=== PATIENT | male | born 1965 | race Caucasian/White ===

== ENCOUNTER 2020-03-26 13:53 | Emergency (ER) | payer BC, SELFPAY ==
[2020-03-26 14:02] VITALS: BP 135/67; PULSE 119; RESP 14; TEMP 37.2; O2SAT 97; BMI 27.1
--- NOTE | 2020-03-26 14:12 | CTR_ITS ---
PROCEDURE INFORMATION: Exam: CT Abdomen And Pelvis With Contrast Exam date and time: 03/26/2020 3:57 PM Age: 54 years old Clinical indication: Abdominal pain; Localized; Right; Prior surgery; Surgery type: Gb, lymphnodes; Additional info: Abd pain TECHNIQUE: Imaging protocol: Computed tomography of the abdomen and pelvis with intravenous contrast. Radiation optimization: All CT scans at this facility use at least one of these dose optimization techniques: automated exposure control; mA and/or kV adjustment per patient size (includes targeted exams where dose is matched to clinical indication); or iterative reconstruction. Contrast material: OMNI 300; Contrast volume: 95 ml; Contrast route: IV; COMPARISON: No relevant prior studies available. RADIATION DOSE METRICS: Total DLP: 1093.4 mGy-cm FINDINGS: Lungs: Left discoid atelectasis and/or scarring. Liver: Normal. No mass. Gallbladder and bile ducts: Surgical clips in the gallbladder fossa consistent with cholecystectomy. Pancreas: Normal. No ductal dilation. Spleen: Calcified splenic granulomas. 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 3.0 x 2.1 x 2.5 cm left adrenal mass consistent with adrenal metastasis versus primary neoplasm. Kidneys and ureters: Normal. No hydronephrosis. Stomach and bowel: Unremarkable. No obstruction. No mucosal thickening. Appendix: No evidence of appendicitis. Intraperitoneal space: Free fluid in the dependent portion of the pelvis which is abnormal for a male. Vasculature: One or more calcified pelvic phleboliths. Lymph nodes: Multiple lobulated accessory tumors surrounding the primary mass most consistent with metastatic lymphadenopathy with the largest measuring 5.5 cm between the aorta and IVC. The IVC is elevated anteriorly from 5.4 cm retrocaval lymph node. Bladder: Unremarkable as visualized. Reproductive: Nonspecific prostate calcifications. Bones/joints: Unremarkable. No acute fracture. Soft tissues: Unremarkable. CT/CT abdomen pelvis w con* [id number] IMPRESSION: 1. 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 2. Multiple lobulated accessory tumors surrounding the primary mass most consistent with metastatic lymphadenopathy with the largest measuring 5.5 cm between the aorta and IVC. The IVC is elevated anteriorly from 5.4 cm retrocaval lymph node. 3. 3.0 x 2.1 x 2.5 cm left adrenal mass consistent with adrenal metastasis versus primary neoplasm. Radiation Dose CTDIVOL = (mGy): DLP = 1093.4 (mGy-cm)
--- NOTE | 2020-03-26 14:15 | W.ED.ABDPA2 ---
HPI - Abdominal Pain General: Chief Complaint: Abdominal Pain Stated Complaint: abd pain Time Seen by Provider: 03/26/20 14:07 Source: patient Mode of arrival: ambulatory Limitations: no limitations History of Present Illness: HPI narrative: 54-year-old male states he has had right-sided abdominal pain over the last 5 to 6 days. He states it is worsened and is in his right lower quadrant and right flank. He denies any worsening improving factors. He denies any fevers or vomiting. MD elicited complaint: abdominal pain Pertinent past history: none Onset (ago): day(s) Pain Consistency: constant Location: RLQ and R flank Severity: moderate Quality: sharp Radiation: none Exacerbating factors: nothing Relieving factors: nothing Associated Symptoms: Denies chills, dysuria and fever(s) Review of Systems Const: Denies: fever(s), chills, body aches or change in appetite Eyes: Denies: blurry vision or eye discomfort ENMT: Denies: throat pain or dental pain Card: Denies: chest pain Resp: Denies: dyspnea GI: Reports: abdominal pain : Denies: dysuria Musc: Denies: neck pain or back pain Skin/Breast: Denies: rash Neuro: Denies: headache(s) Psych: Denies: depression Fabian/Lymph: Denies: easy bruising All/Imm: Denies: urticaria PFSH ED PFSH: Social History Smoking and tobacco status: never smoked Physical Exam Const: COMMON NORMALS: no acute distress, patient oriented x3 and healthy appearing HENMT: COMMON NORMALS: normocephalic and atraumatic HEAD & SCALP: normocephalic and atraumatic Eye: COMMON NORMALS: Equal, round and reactive pupils present and EOMs intact bilaterally PUPIL: Yes Equal, round and reactive pupils present Neck/C-Spine: COMMON NORMALS: full ROM and supple Chest: COMMONS NORMALS: normal inspection of the chest and normal palpation of entire chest wall Resp: COMMON NORMALS: normal respiratory effort, No retractions, No use of accessory muscles and clear to auscultation bilaterally AUSCULTATION: clear to auscultation bilaterally Cardio: COMMON NORMALS: regular rate, regular rhythm and No murmurs present (Cardio) RATE: regular rate RHYTHM: regular rhythm GI: COMMON NORMALS: Normal to inspection, nondistended, normoactive bowel sounds present, Soft to palpation and no masses PALPATION: Yes Soft to palpation and Yes Tenderness to palpation present (GI) Details: RLQ Extremity: COMMON NORMALS: normal to inspection and full ROM Neuro: COMMON NORMALS: patient oriented x3, moves all extremities and no focal motor deficits Psych: COMMON NORMALS: mental status grossly normal, Normal thought process present and cooperative THOUGHT PROCESS: Normal thought process present Skin: COMMON NORMALS: no rashes or lesions noted and no wounds GENERAL SKIN EXAM: no rashes or lesions noted Course Vital Signs: Vital signs: Vital Signs Temperature 98.9 F 03/26/20 14:02 Pulse Rate 97 03/26/20 16:17 Respiratory Rate 16 03/26/20 16:17 Blood Pressure 132/85 03/26/20 14:20 Pulse Oximetry 95 03/26/20 16:17 MDM - Abdominal Pain MDM Narrative: Medical decision making narrative: Patient presents here with abdominal pain. Patient CT showed an adrenal mass. Patient has a history of melanoma and has an oncologist from that. Patient is to follow-up with an oncologist in the 2 to 4 days. He was hyperglycemic and his blood glucose is improved. Patient sodium low but likely due to pseudohyponatremia from his glucose. Patient is stable for discharge and is to follow-up with oncologist in 2 to 4 days return to ER if worsening. Lab Data: Labs: Lab Results 03/26/20 03/26/20 03/26/20 Range/Units 14:16 14:20 14:20 WBC 13.0 H (4.0-10.0) 10^3/ uL RBC 4.51 (4.1-5.3) 10^6/u L Hgb 10.9 L (11.7-16.6) g/dL Hct 34.9 L (42.0-52.0) % MCV 77.4 L (80-94) fL MCH 24.2 L (28.0-34.0) pg MCHC 31.2 (30.0-36.0) g/dL RDW 15.2 H (12.1-15.1) % Plt Count 474 H (130-400) 10^3/c mm MPV 8.5 (7.4-10.4) fL Neut % (Auto) 82.9 % Lymph % (Auto) 8.8 % [facility] % (Auto) 7.5 % Eos % (Auto) 0.1 % Baso % (Auto) 0.3 % Neut # (Auto) 10.8 H (1.8-7.7) 10^3/u L Lymph # (Auto) 1.1 (0.8-4.8) 10^3/u L [facility] # (Auto) 1.0 H (0.2-0.9) 10^3/u L Eos # (Auto) 0.0 (0.0-0.8) 10^3/u L Baso # (Auto) 0.0 (0.0-0.1) 10^3/u L Nucleated RBC % (a uto) 0 % Nucleated RBCs # 0.0 /100WBC Sodium 125 L (136-145) mmol/L Potassium 4.2 (3.5-5.1) mmol/L Chloride 85 L (98-107) mmol/L Carbon Dioxide 25 (22-29) mmol/L Anion Gap 19.2 H (5-19) BUN 11 (6-20) mg/dL Creatinine 0.8 (0.7-1.2) mg/dL GFR Calculation 101.5 (90-130) mL/min Glucose 436 H (65-115) mg/dL POC Glucose (70-110) mg/dL Calculated Osmolal ity 275 L (285-295) mOsm/k g Calcium 9.2 (8.5-10.5) mg/dL Total Bilirubin 1.2 (0.15-1.2) mg/dL AST 28 (0-40) U/L ALT 13 (0-41) U/L Alkaline Phosphata se 91 (40-130) IU/L Total Protein 7.8 (6.6-8.7) g/dL Albumin 3.6 (3.5-5.2) g/dL Globulin 4.2 (1.3-4.6) g/dL Lipase 66 H (13-60) U/L Urine Color Yellow (Yellow) Urine Appearance Clear (CLEAR) Urine pH 5 (5-7) Ur Specific Gravit y 1.010 (1.005-1.030) Urine Protein Neg (Negative) Urine Glucose (UA) 4+ H (Normal) Urine Ketones 1+ H (Negative) Urine Blood Neg (Negative) Urine Nitrate Negative (Negative) Urine Bilirubin Neg (NEGATIVE) Urine Urobilinogen Norm (Negative) mg/dL Ur Leukocyte Deisi ase Negative (Negative) 03/26/20 Range/Units 16:26 WBC (4.0-10.0) 10^3/ uL RBC (4.1-5.3) 10^6/u L Hgb (11.7-16.6) g/dL Hct (42.0-52.0) % MCV (80-94) fL MCH (28.0-34.0) pg MCHC (30.0-36.0) g/dL RDW (12.1-15.1) % Plt Count (130-400) 10^3/c mm MPV (7.4-10.4) fL Neut % (Auto) % Lymph % (Auto) % [facility] % (Auto) % Eos % (Auto) % Baso % (Auto) % Neut # (Auto) (1.8-7.7) 10^3/u L Lymph # (Auto) (0.8-4.8) 10^3/u L [facility] # (Auto) (0.2-0.9) 10^3/u L Eos # (Auto) (0.0-0.8) 10^3/u L Baso # (Auto) (0.0-0.1) 10^3/u L Nucleated RBC % (a uto) % Nucleated RBCs # /100WBC Sodium (136-145) mmol/L Potassium (3.5-5.1) mmol/L Chloride (98-107) mmol/L Carbon Dioxide (22-29) mmol/L Anion Gap (5-19) BUN (6-20) mg/dL Creatinine (0.7-1.2) mg/dL GFR Calculation (90-130) mL/min Glucose (65-115) mg/dL POC Glucose 386 (70-110) mg/dL Calculated Osmolal ity (285-295) mOsm/k g Calcium (8.5-10.5) mg/dL Total Bilirubin (0.15-1.2) mg/dL AST (0-40) U/L ALT (0-41) U/L Alkaline Phosphata se (40-130) IU/L Total Protein (6.6-8.7) g/dL Albumin (3.5-5.2) g/dL Globulin (1.3-4.6) g/dL Lipase (13-60) U/L Urine Color (Yellow) Urine Appearance (CLEAR) Urine pH (5-7) Ur Specific Gravit y (1.005-1.030) Urine Protein (Negative) Urine Glucose (UA) (Normal) Urine Ketones (Negative) Urine Blood (Negative) Urine Nitrate (Negative) Urine Bilirubin (NEGATIVE) Urine Urobilinogen (Negative) mg/dL Ur Leukocyte Deisi ase (Negative) Imaging Data ^: CT Abd/Pel: Radiologist's impression: [address] [address] [address] Scan Report Signed Patient: Andres Cisneros Unit #: [id number] : 1965 Age/Sex: 54 / M ADM Date: 03/26/20 Loc: ER Room/Bed: Attending Dr: Ordering Provider/Ordering MD: Jh Paredes MD Date of Service: 03/26/20 Procedure(s): CT abdomen pelvis w con* [id number] Accession Number(s): [id number] Report Number: [id number] PROCEDURE INFORMATION: Exam: CT Abdomen And Pelvis With Contrast Exam date and time: 03/26/2020 3:57 PM Age: 54 years old Clinical indication: Abdominal pain; Localized; Right; Prior surgery; Surgery type: Gb, lymphnodes; Additional info: Abd pain TECHNIQUE: Imaging protocol: Computed tomography of the abdomen and pelvis with intravenous contrast. Radiation optimization: All CT scans at this facility use at least one of these dose optimization techniques: automated exposure control; mA and/or kV adjustment per patient size (includes targeted exams where dose is matched to clinical indication); or iterative reconstruction. Contrast material: OMNI 300; Contrast volume: 95 ml; Contrast route: IV; COMPARISON: No relevant prior studies available. RADIATION DOSE METRICS: Total DLP: 1093.4 mGy-cm FINDINGS: Lungs: Left discoid atelectasis and/or scarring. Liver: Normal. No mass. Gallbladder and bile ducts: Surgical clips in the gallbladder fossa consistent with cholecystectomy. Pancreas: Normal. No ductal dilation. Spleen: Calcified splenic granulomas. 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 3.0 x 2.1 x 2.5 cm left adrenal mass consistent with adrenal metastasis versus primary neoplasm. Kidneys and ureters: Normal. No hydronephrosis. Stomach and bowel: Unremarkable. No obstruction. No mucosal thickening. Appendix: No evidence of appendicitis. Intraperitoneal space: Free fluid in the dependent portion of the pelvis which is abnormal for a male. Vasculature: One or more calcified pelvic phleboliths. Lymph nodes: Multiple lobulated accessory tumors surrounding the primary mass most consistent with metastatic lymphadenopathy with the largest measuring 5.5 cm between the aorta and IVC. The IVC is elevated anteriorly from 5.4 cm retrocaval lymph node. Bladder: Unremarkable as visualized. Reproductive: Nonspecific prostate calcifications. Bones/joints: Unremarkable. No acute fracture. Soft tissues: Unremarkable. CT/CT abdomen pelvis w con* [id number] IMPRESSION: 1. 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 2. Multiple lobulated accessory tumors surrounding the primary mass most consistent with metastatic lymphadenopathy with the largest measuring 5.5 cm between the aorta and IVC. The IVC is elevated anteriorly from 5.4 cm retrocaval lymph node. 3. 3.0 x 2.1 x 2.5 cm left adrenal mass consistent with adrenal metastasis versus primary neoplasm. Discharge Plan Discharge Patient Disposition: Home, Self-Care Clinical Impression: Adrenal mass, Hyperglycemia Abdominal pain Qualifiers: Abdominal location: generalized Qualified Code(s): R10.84 - Generalized abdominal pain Condition: Stable Prescriptions: [place] 5-325 mg tablet 1 tab PO Q6H PRN (Reason: pain) Qty: 14 RF: 0 Zofran 4 mg tablet 4 mg PO QID PRN (Reason: nausea and vomiting) Qty: 14 RF: 0 No Action metformin 1,000 mg tablet 1,000 mg PO BID RF: 0 lisinopril 5 mg tablet 5 mg PO DAILY RF: 0 Centrum Silver Men 300-600-300 mcg Tablet 1 tab PO DAILY RF: 0 Discharge Orders: Discharge Order (Routine); Ordered 03/26/20 Ordered By: Jh Paredes Referrals: Cory Rollins FNP [Primary Care Provider] - Discharge Diet: Advance as tolerated Discharge Activity: Resume usual activity Patient Instructions: Abdominal Pain (ED) Coding Level of Care Code ED [employer] Ebs Architect for Chg Fwd Exam Comprehensive
[2020-03-26 14:20] VITALS: BP 132/85; PULSE 118; RESP 18; O2SAT 96
[2020-03-26 14:23] VITALS: RESP 18; O2SAT 97
[2020-03-26] MEDS: morphine 4 mg/mL SDV 1 mL IVP (14:23)
[2020-03-26] MEDS: ondansetron 2 mg/ML SDV 2 mL 4 MG IVP (14:23)
[2020-03-26] MEDS: sodium chloride 0.9% 1,000 ML 999 ML IV ×2 (14:23→15:40)
[2020-03-26 14:24] LABS: Add Urine Microscopic? NO
[2020-03-26 14:28] LABS: Basophils % 0.3 %; Eosinophils % 0.1 %; Hematocrit 34.9 % (42.0-52.0); Hemoglobin 10.9 g/dL (11.7-16.6); Lymphocytes # 1.1 10^3/uL (0.8-4.8); Lymphocytes % 8.8 %; Mean Corpuscular HGB Conc 31.2 g/dL (30.0-36.0); Mean Corpuscular Hemoglobin 24.2 pg (28.0-34.0); Mean Corpuscular Volume 77.4 fL (80-94); Mean Platelet Volume 8.5 fL (7.4-10.4); Monocytes % 7.5 %; Neutrophils # 10.8 10^3/uL (1.8-7.7); Neutrophils % 82.9 %; Nucleated Red Blood Cells % 0 %; Platelet Count 474 10^3/cmm (130-400); Red Blood Count 4.51 10^6/uL (4.1-5.3); Red Cell Distribution Width 15.2 % (12.1-15.1)
[2020-03-26 14:53] LABS: Protein Urine Neg (Negative); Urine Appearance Clear (CLEAR); Urine Color Yellow (Yellow); pH Urine 5 (5-7)
[2020-03-26 14:54] LABS: Alanine Aminotransferase 13 U/L (0-41); Albumin Level 3.6 g/dL (3.5-5.2); Alkaline Phosphatase 91 IU/L (40-130); Anion Gap 19.2 (5-19); Aspartate Amino Transferase 28 U/L (0-40); Blood Urea Nitrogen 11 mg/dL (6-20); Calcium 9.2 mg/dL (8.5-10.5); Carbon Dioxide 25 mmol/L (22-29); Chloride 85 mmol/L (98-107); Creatinine Clr Calc Pharmacy 126.5721; Globulin 4.2 g/dL (1.3-4.6); Glomerular Filtration Rate 101.5 mL/min (90-130); Glucose 436 mg/dL (65-115); Lipase 66 U/L (13-60); Osmolality Calculated 275 mOsm/kg (285-295); Potassium 4.2 mmol/L (3.5-5.1); Sodium 125 mmol/L (136-145); Total Bilirubin 1.2 mg/dL (0.15-1.2); Total Protein 7.8 g/dL (6.6-8.7)
[2020-03-26 14:59] LABS: Bilirubin Urine Neg (NEGATIVE); Blood Urine Neg (Negative); Glucose Urine UA 4+ (Normal); Ketones Urine 1+ (Negative); Leukocyte Esterase Urine Negative (Negative); Nitrate Urine Negative (Negative); Urobilinogen Urine Norm (Negative)
[2020-03-26] MEDS: insulin regular-human 100 units/1 mL 6 UNIT IVP (15:42)
[2020-03-26] MEDS: iohexol 300 mg/mL 100 mL Btl IV (16:08)
[2020-03-26 16:17] VITALS: PULSE 97; RESP 16; O2SAT 95
[2020-03-26 16:29] LABS: Glucose Point of Care 386 mg/dL (70-110)
[2020-03-26 16:45] VITALS: BP 121/77; PULSE 106; RESP 16; O2SAT 97
== END 2020-03-26 16:45 | disposition home or self-care (01) ==
PROVIDERS: Emergency Provider Emergency Medicine; Family Provider Nurse Practitioner Family; PCP Nurse Practitioner Family
DX: E27.9 Disorder of adrenal gland, unspecified (principal); R73.9 Hyperglycemia, unspecified
CPT/HCPCS: 12345; 36416; 74177; 80053; 81003; 82962; 83690; 85025; 96360; 96361; 96374; 96375; 99283; A9270; J1815; J2270; J2405; J7030; Q9967